=== PATIENT | female | born 1995 | race Caucasian/White ===

== ENCOUNTER 2019-04-15 07:30 | Emergency (ER) | payer OTHER ==
[~2019-04-15] VITALS: Ht 154.9 cm; Wt 83.1 kg
[2019-04-15 09:43] LABS: BASO # 0.1 10^3/uL (0.0-0.2); BASO % 0.4 % (0.0-1.0); EOS % 0.3 % (0.0-3.0); HEMATOCRIT 39.4 % (36.0-47.0); HEMOGLOBIN 12.9 g/dl (12.0-15.5); LYMPH # 1.5 10^3/uL (1.5-5.0); LYMPH % 12.7 % (24.0-44.0); MEAN CORPUSCULAR HEMOGLOBIN 29.1 pg (27.0-33.0); MEAN CORPUSCULAR HGB CONC 32.7 g/dl (32.0-36.5); MEAN CORPUSCULAR VOLUME 88.7 fl (80.0-96.0); MONO # 0.8 10^3/uL (0.0-0.8); NEUTROPHILS # 9.5 10^3/uL (1.5-8.5); NEUTROPHILS % 79.2 % (36.0-66.0); PLATELET COUNT, AUTOMATED 301 10^3/uL (150-450); RED BLOOD COUNT 4.44 10^6/uL (4.00-5.40)
--- NOTE | 2019-04-15 10:46 | REP ---
Clinical: Right flank pain. Technique: Axial noncontrast images from the lung bases to the pubic symphysis with coronal and sagittal re-formations. Findings: Liver, spleen, pancreas, gallbladder, bilateral adrenal glands and kidneys are normal for noncontrast evaluation. The enteric system is without obstruction or acute inflammatory process. Normal terminal ileum and appendix identified in the right lower quadrant. Pelvis demonstrates normal bladder and age-appropriate uterus/adnexa. No pelvic fluid. No free air. No significant adenopathy. Musculoskeletal structures are intact. Lung bases are clear. Impression: Negative noncontrast CT of the abdomen and pelvis. No acute abdominopelvic pathology appreciated. Electronically Signed by Oleksandr Montgomery MD 04/15/2019 10:38 A
[2019-04-15] MEDS ORDERED: MACR100C43 PO (11:46)
[2019-04-15 12:00] VITALS: BP 128/65
== END 2019-04-15 12:01 | disposition home or self-care (01) ==
LOC: M ED 07:30
DX: N39.0 Urinary tract infection, site not specified (principal)

== ENCOUNTER → 2019-06-25 | Outpatient (REF) | payer OTHER ==
[~2019-06-25] MED LIST: MACR100C43 PO
[2019-06-25 19:51] LABS: CHLAMYDIA DNA AMPLIFICATION NEGATIVE (NEGATIVE); GC DNA AMPLIFICATION NEGATIVE (NEGATIVE)
== END ==
LOC: M SFHCADAM 14:53
PROVIDERS: ATTEND Physician Assistant
DX: Z11.3 Encounter for screening for infections with a predominantly sexual mode of transmission (principal); Z12.4 Encounter for screening for malignant neoplasm of cervix

== ENCOUNTER → 2020-04-20 | Outpatient (REF) | payer OTHER ==
[2020-04-20 11:47] LABS: BASO % 0.4 % (0.0-1.0); EOS # 0.1 10^3/uL (0.0-0.5); EOS % 0.8 % (0.0-3.0); HEMOGLOBIN 12.6 g/dl (12.0-15.5); LYMPH # 1.9 10^3/uL (1.5-5.0); LYMPH % 26.8 % (24.0-44.0); MEAN CORPUSCULAR HEMOGLOBIN 29.9 pg (27.0-33.0); MEAN CORPUSCULAR HGB CONC 33.2 g/dl (32.0-36.5); MONO # 0.6 10^3/uL (0.0-0.8); MONO % 8.6 % (2.0-8.0); NEUTROPHILS # 4.5 10^3/uL (1.5-8.5); PLATELET COUNT, AUTOMATED 275 10^3/uL (150-450); RED BLOOD COUNT 4.22 10^6/uL (4.00-5.40); WHITE BLOOD COUNT 7.2 10^3/uL (4.0-10.0)
[2020-04-20 12:28] LABS: ALBUMIN 3.8 GM/DL (3.2-5.2); ALT/SGPT 18 U/L (12-78); BILIRUBIN,TOTAL 0.4 MG/DL (0.2-1.0); BLOOD UREA NITROGEN 10 MG/DL (7-18); CALCIUM LEVEL 9.2 MG/DL (8.5-10.1); CARBON DIOXIDE LEVEL 22 MEQ/L (21-32); CHLORIDE LEVEL 106 MEQ/L (98-107); CHOLESTEROL LEVEL 163 MG/DL (<200); CHOLESTEROL RISK RATIO 2.012 (<5); CREATININE FOR GFR 0.56 MG/DL (0.55-1.30); FERRITIN 26 NG/ML (8-252); FREE T4 0.91 NG/DL (0.76-1.46); GLOMERULAR FILTRATION RATE > 60.0 (>60); GLUCOSE, FASTING 94 MG/DL (70-100); HDL CHOLESTEROL 81 MG/DL (>40); IRON (FE) 148 UG/DL (50-170); LDL CHOLESTEROL 69 MG/DL (<100); NON-HDL-C 82 MG/DL; PERCENT SATURATION 36.9 % (13.2-45.0); POTASSIUM SERUM 4.1 MEQ/L (3.5-5.1); SODIUM LEVEL 137 MEQ/L (136-145); THYROID STIMULATING HORMONE 0.845 uIU/ML (0.358-3.740); TOTAL IRON BINDING CAPACITY 401 UG/DL (250-450); TOTAL PROTEIN 6.8 GM/DL (6.4-8.2); TRIGLYCERIDES LEVEL 64 MG/DL (<150)
[2020-04-20 12:29] LABS: FOLATE 14.5 NG/ML; VITAMIN B12 LEVEL 341 PG/ML
== END ==
LOC: M SFHCADAM 11:22
PROVIDERS: ATTEND Physician Assistant
DX: D50.8 Other iron deficiency anemias (principal); Z13.220 Encounter for screening for lipoid disorders; R63.5 Abnormal weight gain

== ENCOUNTER → 2020-06-17 | Outpatient (REF) | payer OTHER ==
[2020-06-17 14:39] LABS: FREE T4 0.94 NG/DL (0.76-1.46); THYROID STIMULATING HORMONE 1.13 uIU/ML (0.358-3.740)
[2020-06-17 15:49] LABS: PROGESTERONE 2.09 NG/ML; PROLACTIN 8.2 NG/ML
== END ==
LOC: M PLALAB 10:03
PROVIDERS: ATTEND Specialist
DX: N92.6 Irregular menstruation, unspecified (principal)

== ENCOUNTER → 2020-07-13 | Outpatient (CLI) | payer OTHER ==
--- NOTE | 2020-07-14 09:32 | REP ---
INDICATION: IRREGULAR MENSES, RO PCOS COMPARISON: None. TECHNIQUE: Transabdominal pelvic ultrasound followed by transvaginal examination for better evaluation of the endometrium and adnexa with color Doppler evaluation of the ovaries. FINDINGS: Bladder is unremarkable and measures 9.4 x 5.6 x 8.2 cm. Normal anteverted uterus measures 8.2 x 4.6 x 5.8 cm. The endometrial complex measures 5.6 mm thickness. No discrete uterine or endometrial abnormalities are appreciated. Bilateral ovaries are normal in appearance and vascularity without evidence for torsion. Right ovary measures 2.8 x 2.2 x 2.1 cm; R I = (venous flow detected). Left ovary measures 4.4 x 2.7 x 2.2 cm with 1.6 cm dominant follicle; R I = 0.46. No pelvic fluid or adnexal mass lesion. IMPRESSION: Essentially normal examination. No obvious abnormality by ultrasound evaluation. <Electronically signed by Oleksandr Montgomery > 07/14/20 0928
== END ==
LOC: M RAD 11:01
PROVIDERS: ATTEND Legal Medicine
DX: N92.6 Irregular menstruation, unspecified (principal)

== ENCOUNTER → 2021-04-20 | Outpatient (CLI) | payer OTHER | LOC: M PLALAB 11:37 | PROVIDERS: ATTEND Specialist | DX: N92.6 Irregular menstruation, unspecified (principal) ==

== ENCOUNTER → 2021-05-20 | Outpatient (REF) | payer OTHER | LOC: M LAB REF 16:12 | PROVIDERS: ATTEND Specialist | DX: N92.6 Irregular menstruation, unspecified (principal) ==

== ENCOUNTER → 2021-06-22 | Outpatient (REF) | payer OTHER | LOC: M LAB REF 15:45 | PROVIDERS: ATTEND Specialist | DX: N92.6 Irregular menstruation, unspecified (principal) ==

== ENCOUNTER → 2021-07-14 | Outpatient (CLI) | payer OTHER | LOC: M LAB 11:43 | PROVIDERS: ATTEND Specialist | DX: N92.6 Irregular menstruation, unspecified (principal) ==

== ENCOUNTER → 2021-08-09 | Outpatient (REF) | payer OTHER | LOC: M SFHCWAGY 10:42 | PROVIDERS: ATTEND Specialist | DX: N92.6 Irregular menstruation, unspecified (principal) ==

== ENCOUNTER → 2022-02-21 | Outpatient (REF) | LOC: M EMP 09:27 | PROVIDERS: ATTEND Family Medicine | DX: Z11.52 Encounter for screening for COVID-19 (principal) ==

== ENCOUNTER → 2022-02-23 | Outpatient (REF) | LOC: M EMP 08:12 | PROVIDERS: ATTEND Family Medicine | DX: Z11.52 Encounter for screening for COVID-19 (principal) ==

== ENCOUNTER → 2022-04-06 | Outpatient (REF) | payer BC, OTHER ==
[2022-04-06 16:29] LABS: HEMATOCRIT 37.3 % (36.0-47.0); HEMOGLOBIN 12.1 g/dl (12.0-15.5); MEAN CORPUSCULAR HEMOGLOBIN 29.2 pg (27.0-33.0); MEAN CORPUSCULAR HGB CONC 32.4 g/dl (32.0-36.5); MEAN CORPUSCULAR VOLUME 90.1 fl (80.0-96.0); PLATELET COUNT, AUTOMATED 349 10^3/uL (150-450); RED BLOOD COUNT 4.14 10^6/uL (4.00-5.40); WHITE BLOOD COUNT 15.9 10^3/uL (4.0-10.0)
[2022-04-06 23:08] LABS: FERRITIN 21.5 NG/ML (7.3-270.7)
[2022-04-06 23:58] LABS: IRON (FE) 74 UG/DL (50-170)
[2022-04-06 23:59] LABS: ALKALINE PHOSPHATASE 84 U/L (46-116); ALT/SGPT 28 U/L (7.0-40); AST/SGOT 21 U/L (<34); BILIRUBIN,TOTAL 0.4 MG/DL (0.3-1.2); BLOOD UREA NITROGEN 10 MG/DL (9-23); CALCIUM LEVEL 9.1 MG/DL (8.5-10.1); CARBON DIOXIDE LEVEL 22 MMOL/L (20-31); CHLORIDE LEVEL 103 MMOL/L (98-107); CREATININE FOR GFR 0.59 MG/DL (0.55-1.30); GLOMERULAR FILTRATION RATE > 60.0 (>60); GLUCOSE, FASTING 68 MG/DL (60-100); PERCENT SATURATION 21.6 % (13.2-45.0); POTASSIUM SERUM 3.7 MMOL/L (3.5-5.1); SODIUM LEVEL 137 MMOL/L (136-145); TOTAL IRON BINDING CAPACITY 342 UG/DL (250-425)
== END ==
LOC: M SFHCADAM 14:27
PROVIDERS: ATTEND Physician Assistant
DX: D50.8 Other iron deficiency anemias (principal)

== ENCOUNTER → 2022-07-17 | Outpatient (REF) | LOC: M EMP 08:40 | PROVIDERS: ATTEND Family Medicine | DX: Z12.11 Encounter for screening for malignant neoplasm of colon (principal) ==

== ENCOUNTER → 2022-08-18 | Outpatient (CLI) | payer BC, OTHER | LOC: M LAB 06:49 | PROVIDERS: ATTEND Legal Medicine | DX: R73.02 Impaired glucose tolerance (oral) (principal) ==